=== PATIENT | female | born 1930 | race Caucasian/White ===

== ENCOUNTER → 2016-05-11 | Outpatient (CLI) | payer MEDICARE, OTHER ==
[~2016-05-11] MED LIST: CALCIUM; CINNAMON; CRANBERRY PILLS; HYDR-3812 PO; HYDR-757 PO; MULT1TAB63 PO; OMG1KC PO; TRAM50TA2 PO; VIT PO; VIT1CAPS5 PO; VITAMIN B-12 PO
--- OUTSIDE RECORDS SUMMARY | 2016-05-11 05:52 | XMS REPORT | Continuity of Care Document ---
Author Author [facility] Organization [facility] Address Unknown Phone Unavailable Support Name Relationship Address Phone DENISSE TITUS MD Caregiver [address] [place] [address] SHINE DUARTE Next Of Kin [address] [place], [place] [phone] Insurance Providers Payer Name Policy Number Subscriber Name Relationship Wps Medicare [id number] Lorena Duarte 18 Self / Same As Patient Enter Insurance Name [id number] Lorena Duarte 18 Self / Same As Patient Advance Directives Directive Response Recorded Date/Time Advance Directives Yes 06/12/14 11:16pm Health Care Power of Anesthesiologist/Physician Yes 06/12/14 11:16pm Organ Donor No 06/12/14 11:16pm Resuscitation Status Full Code 06/12/14 11:16pm Problems Medical Problems Problem Onset Date Status Lower extremity weakness Unknown Active Elevated erythrocyte sedimentation rate Unknown Active Systolic murmur Unknown Active Medications Medication Dose Route Sig Days/Qty Instructions Order Date Discontinued Date Status Multivitamins 12/21/07 Active [Calcium Chew Tabs] 12/21/07 Active Fish Oil 12/21/07 Active [Cranberry Pills] 12/21/07 Active [Cinnamon Tablet] 01/13/09 Active Social History Social History Problem Response Recorded Date/Time Alcohol Use Denies Use 06/12/2014 11:16pm Recreational Drug Use No 06/12/2014 11:16pm Recent Foreign Travel No 06/12/2014 11:16pm Recent Infectious Disease Exposure No 06/12/2014 11:16pm Sexually Transmitted Disease No 06/12/2014 11:16pm Smoking Status Never a Smoker 06/12/2014 11:16pm Query Response Start Date Stop Date Smoking Status Never a Smoker Hospital Discharge Instructions No hospital discharge instructions. Plan of Care No plan of care. Functional Status Query Response Date Recorded Patient Orientation Person Place Time Situation June 12, 2014 11:16pm Comprehension Ability Understands Concepts June 12, 2014 11:16pm Allergies, Adverse Reactions, Alerts Allergen Type Severity Reaction Status Last Updated No Known Allergies Allergy Unknown Active 12/24/07 Immunizations No immunization records. Vital Signs Acute Vital Signs Vital Response Date/Time Temperature (Fahrenheit) 98.2 degrees F (97.6 - 99.5) Temperature (Calculated Celsius) 36.50030 degrees C (36.4 - 37.5) Temperature Source Temporal Pulse Rate (adult) 99 bpm (60 - 90) Respiratory Rate 18 bpm (12 - 24) O2 Sat by Pulse Oximetry 97 % (88 - 100) Blood Pressure 154/70 mm Hg Pain Pain Intensity 0 Height (Feet) 5 feet Height (Inches) 0 inches Height (Calculated Centimeters) 152.282025 cm Weight (Pounds) 131 pounds Weight (Calculated Kilograms) 59.865465 kilograms Calculated BMI 25.58 Results Laboratory Results Test Name Result Units Flags Reference Collection Date/Time Result Date/ Time Comments White Blood Count 12.6 10^3/uL H 4.3-11.0 06/12/2014 11:30pm 06/12/2014 11:39pm Red Blood Count 4.22 10^6/uL L 4.35-5.85 06/12/2014 11:30pm 06/12/2014 11 :39pm Hemoglobin 13.6 G/DL 11.5-16.0 06/12/2014 11:30pm 06/12/2014 11:39pm Hematocrit 40 % 35-52 06/12/2014 11:30pm 06/12/2014 11:39pm Mean Corpuscular Volume 94 FL 80-99 06/12/2014 11:30pm 06/12/2014 11: 39pm Mean Corpuscular Hemoglobin 32 PG 25-34 06/12/2014 11:30pm 06/12/2014 11:39pm Mean Corpuscular Hemoglobin Concent 34 G/DL 32-36 06/12/2014 11:30pm 11:39pm Red Cell Distribution Width 14.5 % 10.0-14.5 06/12/2014 11:30pm 2014 11:39pm Platelet Count 157 10^3/uL 130-400 06/12/2014 11:30pm 06/12/2014 11: 39pm Mean Platelet Volume 10.0 FL 7.4-10.4 06/12/2014 11:30pm 06/12/2014 11: 39pm Neutrophils (%) (Auto) 42 % 42-75 06/12/2014 11:30pm 06/12/2014 11: 39pm Lymphocytes (%) (Auto) 12 % 12-44 06/12/2014 11:30pm 06/12/2014 11: 39pm Monocytes (%) (Auto) 46 % H 0-12 06/12/2014 11:30pm 06/12/2014 11:39pm Eosinophils (%) (Auto) 0 % 0-10 06/12/2014 11:30pm 06/12/2014 11:39pm Basophils (%) (Auto) 0 % 0-10 06/12/2014 11:30pm 06/12/2014 11:39pm Neutrophils # (Auto) 5.3 X 10^3 1.8-7.8 06/12/2014 11:30pm 06/12/2014 11:39pm Lymphocytes # (Auto) 1.5 X 10^3 1.0-4.0 06/12/2014 11:30pm 06/12/2014 11:39pm Monocytes # (Auto) 5.8 X 10^3 H 0.0-1.0 06/12/2014 11:30pm 06/12/2014 11: 39pm Eosinophils # (Auto) 0.1 10^3/uL 0.0-0.3 06/12/2014 11:30pm 06/12/2014 11:39pm Basophils # (Auto) 0.0 10^3/uL 0.0-0.1 06/12/2014 11:30pm 06/12/2014 11 :39pm Neutrophils % (Manual) 49 % 06/12/2014 11:30pm 06/13/2014 12:08am Band Neutrophils 1 % 06/12/2014 11:30pm 06/13/2014 12:08am Lymphocytes % (Manual) 12 % 06/12/2014 11:30pm 06/13/2014 12:08am Monocytes % (Manual) 38 % 06/12/2014 11:30pm 06/13/2014 12:08am Blood Morphology Comment NORMAL 06/12/2014 11:30pm 06/13/2014 12: 08am Erythrocyte Sedimentation Rate 47 MM/HR H 0-30 06/12/2014 11:30pm 2014 12:08am Urine Color YELLOW 06/12/2014 11:55pm 06/13/2014 12:17am Urine Clarity CLEAR 06/12/2014 11:55pm 06/13/2014 12:17am Urine pH 6 5-9 06/12/2014 11:55pm 06/13/2014 12:17am Urine Specific [place] 1.010 * 1.016-1.022 06/12/2014 11:55pm 2014 12:17am Urine Protein 1+ * NEGATIVE 06/12/2014 11:55pm 06/13/2014 12:17am Urine Glucose (UA) NEGATIVE NEGATIVE 06/12/2014 11:55pm 06/13/2014 12 :17am Urine RBC (Auto) 1+ * NEGATIVE 06/12/2014 11:55pm 06/13/2014 12:17am Urine Ketones 2+ * NEGATIVE 06/12/2014 11:55pm 06/13/2014 12:17am Urine Nitrite NEGATIVE NEGATIVE 06/12/2014 11:55pm 06/13/2014 12: 17am Urine Bilirubin NEGATIVE NEGATIVE 06/12/2014 11:55pm 06/13/2014 12: 17am Urine Urobilinogen NORMAL MG/DL NORMAL 06/12/2014 11:55pm 06/13/2014 12 :17am Urine Leukocyte Esterase 1+ * NEGATIVE 06/12/2014 11:55pm 06/13/2014 12 :17am Urine RBC 2-5 /HPF * 06/12/2014 11:55pm 06/13/2014 12:17am Urine WBC 0-2 /HPF 06/12/2014 11:55pm 06/13/2014 12:17am Urine Bacteria TRACE /HPF 06/12/2014 11:55pm 06/13/2014 12:17am Urine Squamous Epithelial Cells 2-5 /HPF 06/12/2014 11:55pm 2014 12:17am Urine Crystals NONE /LPF 06/12/2014 11:55pm 06/13/2014 12:17am Urine Casts PRESENT /LPF 06/12/2014 11:55pm 06/13/2014 12:17am Urine Granular Casts 2-5 /LPF * 06/12/2014 11:55pm 06/13/2014 12:17am Urine Mucus NEGATIVE /LPF 06/12/2014 11:55pm 06/13/2014 12:17am Urine Culture Indicated NO 06/12/2014 11:55pm 06/13/2014 12:17am Sodium Level 140 MMOL/L 135-145 06/12/2014 11:30pm 06/13/2014 12:00am Potassium Level 3.7 MMOL/L 3.6-5.0 06/12/2014 11:30pm 06/13/2014 12: 00am Chloride Level 103 MMOL/L 98-107 06/12/2014 11:30pm 06/13/2014 12:00am Carbon Dioxide Level 22 MMOL/L 21-32 06/12/2014 11:30pm 06/13/2014 12: 00am Blood Urea Nitrogen 10 MG/DL 7-18 06/12/2014 11:30pm 06/13/2014 12: 00am Creatinine 0.70 MG/DL 0.60-1.30 06/12/2014 11:30pm 06/13/2014 12:00am BUN/Creatinine Ratio 14 06/12/2014 11:30pm 06/13/2014 12:00am Estimat Glomerular Filtration Rate > 60 06/12/2014 11:30pm 2014 12:00am GFR INTERPRETIVE DATA UNITS FOR ESTIMATED GFR (eGFR): mL/min/1.73 M2 REFERENCE RANGE FOR ESTIMATED GFR (eGFR) eGFR NORMAL eGFR >60 MODERATELY DECREASED eGFR 30-59 SEVERLY DECREASED eGFR 15-29 KIDNEY FAILURE <15 (OR DIALYSIS) Glucose Level 128 MG/DL H 70-105 06/12/2014 11:30pm 06/13/2014 12:00am Calcium Level 10.2 MG/DL H 8.5-10.1 06/12/2014 11:30pm 06/13/2014 12: 00am Total Bilirubin 1.7 MG/DL H 0.1-1.0 06/12/2014 11:30pm 06/13/2014 12: 00am Alkaline Phosphatase 60 U/L 40-136 06/12/2014 11:30pm 06/13/2014 12: 00am Aspartate Amino Transf (AST/SGOT) 18 U/L 5-34 06/12/2014 11:30pm 2014 12:00am Alanine Aminotransferase (ALT/SGPT) 8 U/L 0-55 06/12/2014 11:30pm 06/13 12:00am Total Creatine Kinase 59 U/L 29-168 06/12/2014 11:30pm 06/13/2014 12: 00am Troponin I < 0.30 NG/ML <0.30 06/12/2014 11:30pm 06/13/2014 12:20am Total Protein 8.1 G/DL 6.4-8.2 06/12/2014 11:30pm 06/13/2014 12:00am Albumin 4.4 G/DL 3.2-4.5 06/12/2014 11:30pm 06/13/2014 12:00am TSH [place] Testing 3.45 UIU/ML 0.35-4.94 06/12/2014 11:30pm 2014 12:20am Procedures Procedure Status Date Provider(s) Tracing only of electrocardiogram completed 06/12/14 DENISSE TITUS MD Encounters Encounter Location Date/Time Departed Emergency Room Via [facility] 06/12/14 11:09pm Recent Diagnosis
== END ==
LOC: PREOP 05:47
PROVIDERS: ATTEND Surgery
DX: Z01.818 Encounter for other preprocedural examination (principal); C44.310 Basal cell carcinoma of skin of unspecified parts of face

== ENCOUNTER 2016-05-13 07:28 | Day surgery (SDC) | payer MEDICARE, OTHER ==
[~2016-05-13] VITALS: Ht 152.4 cm; Wt 49.4 kg
[~2016-05-13 07:28] MED LIST changes: -VIT PO; -VIT1CAPS5 PO; -VITAMIN B-12 PO
--- OUTSIDE RECORDS SUMMARY | 2016-05-13 07:31 | XMS REPORT | Continuity of Care Document ---
Author Author [facility] Organization [facility] Address Unknown Phone Unavailable Support Name Relationship Address Phone DENISSE TITUS MD Caregiver [address] [place] [address] SHINE DUARTE Next Of Kin [address] [place], [place] [phone] Insurance Providers Payer Name Policy Number Subscriber Name Relationship Wps Medicare [id number] Lorena Duarte 18 Self / Same As Patient Enter Insurance Name [id number] Lorena Duarte 18 Self / Same As Patient Advance Directives Directive Response Recorded Date/Time Advance Directives Yes 06/12/14 11:16pm Health Care Power of Vascular Ultrasound Technologist Yes 06/12/14 11:16pm Organ Donor No 06/12/14 [...] F (97.6 - 99.5) Temperature (Calculated Celsius) 36.53523 degrees C (36.4 - 37.5) Temperature Source Temporal Pulse Rate (adult) 99 bpm (60 - 90) Respiratory Rate 18 bpm (12 - 24) O2 Sat by Pulse Oximetry 97 % (88 - 100) Blood Pressure 154/70 mm Hg Pain Pain Intensity 0 Height (Feet) 5 feet Height (Inches) 0 inches Height (Calculated Centimeters) 152.741492 cm Weight (Pounds) 131 pounds Weight (Calculated Kilograms) 59.422955 kilograms Calculated BMI 25.58 Results Laboratory Results [...] 5-9 06/12/2014 11:55pm 06/13/2014 12:17am Urine Specific [place] 1.010 * 1.016-1.022 06/12/2014 11:55pm 2014 12:17am [...] G/DL 3.2-4.5 06/12/2014 11:30pm 06/13/2014 12:00am TSH [place] Testing 3.45 UIU/ML 0.35-4.94 06/12/2014 11:30pm 2014 12:20am Procedures Procedure Status Date Provider(s) Tracing only of electrocardiogram completed 06/12/14 DENISSE TITUS MD Encounters Encounter Location Date/Time Departed Emergency Room Via [facility] 06/12/14 11:09pm Recent Diagnosis
--- OUTSIDE RECORDS SUMMARY | 2016-05-13 07:32 | XMS REPORT | Continuity of Care Document ---
Author Author [facility] Organization [facility] Address Unknown Phone Unavailable Support Name Relationship Address Phone DENISSE TITUS MD Caregiver [address] [place] [address] SHINE DUARTE Next Of Kin [address] [place], [place] [phone] Insurance Providers Payer Name Policy Number Subscriber Name Relationship Wps Medicare [id number] Lorena Duarte 18 Self / Same As Patient Enter Insurance Name [id number] Lorena Duarte 17 Self / Same As Patient Advance Directives Directive Response Recorded Date/Time Advance Directives Yes 06/12/14 11:16pm Health Care Power of Momd Teacher Yes 06/12/14 11:16pm Organ Donor No 06/12/14 [...] F (97.6 - 99.5) Temperature (Calculated Celsius) 36.75032 degrees C (36.4 - 37.5) Temperature Source Temporal Pulse Rate (adult) 99 bpm (60 - 90) Respiratory Rate 18 bpm (12 - 24) O2 Sat by Pulse Oximetry 97 % (88 - 100) Blood Pressure 154/70 mm Hg Pain Pain Intensity 0 Height (Feet) 5 feet Height (Inches) 0 inches Height (Calculated Centimeters) 152.338127 cm Weight (Pounds) 131 pounds Weight (Calculated Kilograms) 59.535293 kilograms Calculated BMI 25.58 Results Laboratory Results [...] 5-9 06/12/2014 11:55pm 06/13/2014 12:17am Urine Specific [place] 1.010 * 1.016-1.022 06/12/2014 11:55pm 2014 12:17am [...] G/DL 3.2-4.5 06/12/2014 11:30pm 06/13/2014 12:00am TSH [place] Testing 3.45 UIU/ML 0.35-4.94 06/12/2014 11:30pm 2014 12:20am Procedures Procedure Status Date Provider(s) Tracing only of electrocardiogram completed 06/12/14 DENISSE TITUS MD Encounters Encounter Location Date/Time Departed Emergency Room Via [facility] 06/12/14 11:09pm Recent Diagnosis
--- NOTE | 2016-05-13 07:41 | Progress Note-Pre Operative ---
Pre-Operative Progress Note H&P Reviewed The H&P was reviewed, patient examined and no changes noted. Date H&P Reviewed: May 13, 2016 Time H&P Reviewed: 07:41 Pre-Operative Diagnosis: Recurrent skin lesion-Right eyebrow JANN GASPAR MD May 13, 2016 7:41 am
[2016-05-13] MEDS ORDERED: ceFAZolin 1,000 MG (ANCEF) VIAL ONE (07:57)
[2016-05-13] MEDS ORDERED: NS (IVPB) 50 ML ONE (07:57)
[2016-05-13 08:41] VITALS: BP 168/69
[2016-05-13] MEDS ORDERED: BUP/EPI 0.25% 1:200,000 (MARCAINE) 30 ML VIAL ONE (09:01)
[2016-05-13] MEDS ORDERED: proPOfol 200 MG/20 ML (DIPRIVAN) VIAL IV ONE (09:20)
[2016-05-13] MEDS ORDERED: LIDOCAINE PF 2% 10 ML (XYLOCAINE) AMP ONE (09:20)
[2016-05-13] MEDS ORDERED: LACTATED RINGERS 1,000 ML IV ONE (09:20)
[2016-05-13] MEDS ORDERED: LACTATED RINGERS 1,000 ML IV PRN (09:41)
[2016-05-13] MEDS ORDERED: VIT PO (09:41)
[2016-05-13] MEDS ORDERED: MIDAZOLAM 2 MG/2 ML (VERSED) VIAL ONE (09:44)
--- NOTE | 2016-05-13 10:07 | Progress Note-Post Operative ---
Post-Operative Progess Note Pre-Operative Diagnosis Recurrent skin lesion-Right eyebrow Post-Operative Diagnosis SAME Post-Op Procedure Note Date of Procedure: May 13, 2016 Name of Procedure: excision with frozen section Anesthesia Type sedation with local Estimated blood loss (mL): mminimal Specimen(s) collected skin lesion JANN GASPAR MD May 13, 2016 10:06 am
[2016-05-13] MEDS ORDERED: TRAM50TA2 PO (10:09)
--- NOTE | 2016-05-13 10:09 | Discharge Inst-Simple/Standard ---
Discharge Inst-Standard Discharge Medications New, Converted or Re-Newed RX: RX on Chart Patient Instructions/Follow Up Plan of Care/Instructions/FU: follow-up with my nurse in 10 days for suture removal Activity as Tolerated: Yes Discharge Diet: No Restrictions JANN GASPAR MD May 13, 2016 10:09 am
[2016-05-13] MEDS ORDERED: ONDANSETRON 4 MG/2 ML (SDV) Z0FRAN IVP PRN (11:15)
[2016-05-13] MEDS ORDERED: morphine INJ 10 MG/ML 1ML (SYR OR VIAL) IVP PRN (11:15)
[2016-05-13 11:25] VITALS: BP 160/72
[2016-05-13 11:55] VITALS: BP 168/72
[2016-05-13] MEDS ORDERED: ceFAZolin 1 GM/NS 50 ML IVPB IV ONE ×2 (12:00)
[2016-05-13] MEDS ORDERED: CATHETER FLUSH 10 ML SYR IV PRN (12:00)
[2016-05-13 12:25] VITALS: BP 171/58
[2016-05-13 12:40] VITALS: BP 171/58
--- NOTE | 2016-05-13 19:13 | OPERATIVE REPORT ---
PROCEDURE PHYSICIAN: JANN GASPAR DATE OF PROCEDURE: 05/13/2016 PREOPERATIVE DIAGNOSIS: Skin lesion right eyebrow. 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 OPERATION: Excision with frozen section. SURGEON: Dr. Gaspar. ANESTHESIA: Sedation with local. BLOOD LOSS: Minimal. FLUIDS: 300 mL crystalloids. TYPE OF WOUND: Type I (clean wound). INDICATION FOR THE PROCEDURE: This lady presented with an ulcerated, recurrent lesion over the right eyebrow. She had undergone excision of a basal cell carcinoma of the same spot with positive margins in 2007. She was offered excision with frozen section to ensure negative margins. Informed consent was obtained after reviewing the procedure in detail. DESCRIPTION OF PROCEDURE: She was placed supine on the operating table and our and our anesthesiologist administered sedation, monitoring her vital signs. A gram of Ancef was administered intravenously as prophylaxis against wound infection. Sequential compression devices were placed around her legs, to minimize the risk of venous thrombosis. Right eyebrow was prepared and draped in the usual sterile manner. Local anesthesia was achieved using 0.25% Marcaine with epinephrine. Initially, I excised an elliptical segment of skin about 3 cm long x 2.5 cm wide. It was oriented with silk sutures and sent for histologic examination. Dr. Brown reported positive margins involving the superior and inferior aspects of the specimen. Therefore, an additional segment of skin conforming to positive margin was excised and sent for permanent examination. The defect was then approximated using interrupted 6-0 nylon sutures after achieving hemostasis with cautery. The final area of excision was about 4 cm long x 3 cm wide. Job ID: [id number] Dictated Date: 05/13/2016 10:55:11 Rare/Endangered Species Specialist Date: 05/13/2016 19:08:12 / genesis
== END 2016-05-13 12:40 | disposition home or self-care (01) ==
LOC: SDC 07:28
PROVIDERS: ATTEND Surgery
DX: C44.310 Basal cell carcinoma of skin of unspecified parts of face (principal)
CPT/HCPCS: 87081; 88305; 88331; 88332

== ENCOUNTER 2016-06-27 02:47 | Inpatient (IN) | payer MEDICARE, OTHER ==
[~2016-06-27] VITALS: Ht 152.4 cm; Wt 50.3 kg
[~2016-06-27 02:47] MED LIST changes: +VIT PO
--- NOTE | 2016-06-27 02:59 | ED GI ---
General Chief Complaint: Abdominal/GI Problems Stated Complaint: N/V Source of Information: Patient Exam Limitations: No Limitations History of Present Illness Time Seen By Provider: 02:56 Initial Comments Lower abdominal and lower back pain for the past several hours. Symptoms became so severe tonight she called 911. She is nauseated but has not vomited. She denies fevers. Pain is described as a dull ache. Also fell last week and injured her back. Allergies and Home Medications Allergies Coded Allergies: NKANo Known Allergies (Verified Allergy, Unknown, 12/24/07) Home Medications Multivitamins 1 Ea Tablet, 1 TAB PO DAILY, (Reported) Tramadol HCl 50 Mg Tablet, 50 MG PO Q12H PRN for PAIN, #20 Prescribed by: JANN GASPAR on 05/13/16 1009 Review of Systems Constitutional: malaise EENTM: No Symptoms Reported Respiratory: No Symptoms Reported Gastrointestinal: Abdominal Pain, Nausea, Vomiting Musculoskeletal: back pain Skin: no symptoms reported Hematologic/Lymphatic: No Symptoms Reported All Other Systems Reviewed Negative Unless Noted: Yes Past Hluwpor-Cklerb-Enotdi Hx Patient Social History Alcohol Use: Denies Use Smoking Status: Never a Smoker Recent Hopitalizations: No Immunizations Up To Date Date of Pneumonia Vaccine: Aug 24, 2005 Date of Influenza Vaccine: Dec 05, 2015 Surgeries HX Surgeries: Yes (L MASTECTOMY, bilat tkr, skin lesions removed, ) Surgeries: Adenoidectomy, Breast, Section, Joint Replacement, Tonsillectomy Respiratory Hx Respiratory Disorders: No Cardiovascular Hx Cardiac Disorders: Yes Cardiac Disorders: Heart Murmur, Irregular Heartbeat Neurological Hx Neurological Disorders: No Reproductive System Hx Reproductive Disorders: No Sexually Transmitted Disease: No Genitourinary Hx Genitourinary Disorders: Yes (OVERACTIVE BLADDER) Gastrointestinal Hx Gastrointestinal Disorders: Yes Gastrointestinal Disorders: Gastroesophageal Reflux Musculoskeletal Hx Musculoskeletal Disorders: Yes (BILAT KNEE REPLACEMENT, comp fx) Musculoskeletal Disorders: Arthritis, Fractures Endocrine Hx Endocrine Disorders: No HEENT HX ENT Disorders: No (cataracts removed) Cancer Hx Cancer: Yes Cancer: Breast Psychosocial Hx Psychiatric Problems: No Integumentary HX Skin/Integumentary Disorder: No Blood Transfusions Hx Blood Disorders: No Reviewed Nursing Assessment Reviewed/Agree w Nursing PMH: Yes Physical Exam Vital Signs VS - Last 72 Hours, by Label 06/27/16 02:52 Temp 97.6 Pulse 99 Resp 16 B/P (MAP) 150/71 Pulse Ox 93 O2 Delivery Room Air Capillary Refill : General Appearance: WD/WN, no apparent distress HEENT: PERRL/EOMI, pharynx normal Neck: supple Respiratory: lungs clear, normal breath sounds Cardiovascular: regular rate, rhythm, no edema Gastrointestinal: soft, No guarding, No rebound, tenderness (mild tenderness throughout) Extremities: normal inspection Back: vertebral tenderness (tender over her upper lumbar spine) Neurologic/Psychiatric: alert, normal mood/affect Skin: normal color, warm/dry Progress/Results/Core Measures Results/Orders Lab Results Laboratory Tests Test 06/27/16 03:00 Range/Units White Blood Count 34.0 *H 4.3-11.0 10^3/uL Red Blood Count 3.93 L 4.35-5.85 10^6/uL Hemoglobin 12.1 11.5-16.0 G/DL Hematocrit 37 35-52 % Mean Corpuscular Volume 93 80-99 FL Mean Corpuscular Hemoglobin 31 25-34 PG Mean Corpuscular Hemoglobin Concent 33 32-36 G/DL Red Cell Distribution Width 15.7 H 10.0-14.5 % Platelet Count 605 H 130-400 10^3/uL Mean Platelet Volume 10.5 H 7.4-10.4 FL Neutrophils (%) (Auto) 59 42-75 % Lymphocytes (%) (Auto) 5 L 12-44 % Monocytes (%) (Auto) 36 H 0-12 % Eosinophils (%) (Auto) 0 0-10 % Basophils (%) (Auto) 0 0-10 % Neutrophils # (Auto) 19.9 H 1.8-7.8 X 10^3 Lymphocytes # (Auto) 1.9 1.0-4.0 X 10^3 Monocytes # (Auto) 12.1 H 0.0-1.0 X 10^3 Eosinophils # (Auto) 0.1 0.0-0.3 10^3/uL Basophils # (Auto) 0.1 0.0-0.1 10^3/uL Neutrophils % (Manual) 71 % Lymphocytes % (Manual) 4 % Monocytes % (Manual) 21 % Band Neutrophils 4 % Blood Morphology Comment NORMAL Sodium Level 139 135-145 MMOL/L Potassium Level 4.3 3.6-5.0 MMOL/L Chloride Level 103 98-107 MMOL/L Carbon Dioxide Level 24 21-32 MMOL/L Anion Gap 12 5-14 MMOL/L Blood Urea Nitrogen 12 7-18 MG/DL Creatinine 0.71 0.60-1.30 MG/DL Estimat Glomerular Filtration Rate > 60 BUN/Creatinine Ratio 17 Glucose Level 129 H 70-105 MG/DL Calcium Level 8.7 8.5-10.1 MG/DL Total Bilirubin 1.0 0.1-1.0 MG/DL Aspartate Amino Transf (AST/SGOT) 19 5-34 U/L Alanine Aminotransferase (ALT/SGPT) 6 0-55 U/L Alkaline Phosphatase 117 40-136 U/L Total Protein 6.6 6.4-8.2 G/DL Albumin 3.6 3.2-4.5 G/DL Lipase 35 8-78 U/L My Orders Orders - KASSIDY LORA MD Cbc With Automated Diff (06/27/16 02:53) Comprehensive Metabolic Panel (06/27/16 02:53) Lipase (06/27/16 02:53) Ua Culture If Indicated (06/27/16 02:53) Ct Abdomen/Pelvis Wo (06/27/16 03:00) Manual Differential (06/27/16 03:00) Chest 1 View, Ap/Pa Only (06/27/16 05:17) Piperacillin Sodium/Tazobactam (Zosyn Vi (06/27/16 05:30) Saline Lock/Iv-Start (06/27/16 05:30) Vital Signs/I&O Vital Sign - Last 12Hours 06/27/16 02:52 Temp 97.6 Pulse 99 Resp 16 B/P (MAP) 150/71 Pulse Ox 93 O2 Delivery Room Air Diagnostic Imaging Comments 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 There are also densities in the left lung base and an L2 vertebral body fracture. Departure Communication Time/Spoke to Admitting Phy: 05:35 Communication I spoke with Dr. Riley who agrees to admit for Dr. Castellanos. Will consult surgery this morning. Impression Impression: Primary Impression: abdominal pain Additional Impressions: Leukocytosis Cholelithiasis L2 vertebral body fracture Disposition: ADMITTED INPATIENT Condition: Stable Decision to Admit Reason: Admit from ER (General) Decision to Admit/Date: Jun 27, 2016 Time/Decision to Admit Time: 05:21 Departure-Patient Inst. Referrals: MK CASTELLANOS MD (PCP/Family) Primary Care Physician KASSIDY LORA MD Jun 27, 2016 02:59
[2016-06-27 03:08] LABS: BASOPHILS # (AUTO) 0.1 10^3/uL (0.0-0.1); BASOPHILS % (AUTO) 0 % (0-10); EOSINOPHILS # (AUTO) 0.1 10^3/uL (0.0-0.3); EOSINOPHILS % (AUTO) 0 % (0-10); LYMPHOCYTES # (AUTO) 1.9 X 10^3 (1.0-4.0); LYMPHOCYTES % (AUTO) 5 % (12-44); MEAN CORPUSCULAR HEMOGLOBIN 31 PG (25-34); MEAN CORPUSCULAR HGB CONC 33 G/DL (32-36); MEAN CORPUSCULAR VOLUME 93 FL (80-99); MEAN PLATELET VOLUME 10.5 FL (7.4-10.4); MONOCYTES # (AUTO) 12.1 X 10^3 (0.0-1.0); MONOCYTES % (AUTO) 36 % (0-12); NEUTROPHILS # (AUTO) 19.9 X 10^3 (1.8-7.8); NEUTROPHILS % (AUTO) 59 % (42-75); PLATELET COUNT 605 10^3/uL (130-400); RED BLOOD COUNT 3.93 10^6/uL (4.35-5.85); RED CELL DISTRIBUTION WIDTH 15.7 % (10.0-14.5)
[2016-06-27 03:28] LABS: ALANINE AMINOTRANSFERASE 6 U/L (0-55); ALBUMIN 3.6 G/DL (3.2-4.5); ANION GAP 12 MMOL/L (5-14); ASPARTATE AMINO TRANSFERASE 19 U/L (5-34); BLOOD UREA NITROGEN 12 MG/DL (7-18); BUN/CREATININE RATIO 17; CALCIUM 8.7 MG/DL (8.5-10.1); CARBON DIOXIDE 24 MMOL/L (21-32); CHLORIDE 103 MMOL/L (98-107); CREATININE SERUM 0.71 MG/DL (0.60-1.30); GFR ESTIMATED > 60; GLUCOSE 129 MG/DL (70-105); LIPASE 35 U/L (8-78); POTASSIUM 4.3 MMOL/L (3.6-5.0); SODIUM 139 MMOL/L (135-145); TOTAL PROTEIN 6.6 G/DL (6.4-8.2)
[2016-06-27 03:43] LABS: BAND NEUTROPHILS 4 %; LYMPHOCYTES % (MANUAL) 4 %; NEUTROPHILS % (MANUAL) 71 %
[2016-06-27] MEDS ORDERED: PIPERACILLIN SODIUM/TAZOBACTAM 4.5 GM in NS (IVPB) 100 ML IV ONE (05:30)
[2016-06-27] MEDS ORDERED: NS IV 1000 ML 1,000 ML ONE (06:09)
[2016-06-27] MEDS: NS IV 1000 ML 1,000 ML IV SCH ×2 (06:30→17:11)
--- NOTE | 2016-06-27 06:58 | Diagnostic Imaging Report ---
PROCEDURE: CT abdomen and pelvis without contrast. TECHNIQUE: Multiple contiguous axial images were obtained through the abdomen and pelvis without the use of intravenous contrast. INDICATION: Low back pain for 10 days, constipation. COMPARISON: Lumbar spine MRI 08/01/2015. DISCUSSION: Consolidation within the left lower lobe, concerning for pneumonia. Trace left pleural effusion. Cardiomegaly is noted. Antecedent granulomatous disease is present, benign. Calcified gallbladder is noted. The liver, pancreas, stomach, spleen, adrenal glands, and right kidney are unremarkable. Suspect left parapelvic renal cyst. No hydronephrosis or renal stone. Constipation is noted. The uterus and urinary bladder are unremarkable. 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 The aorta is normal in caliber. Suspect acute fracture along the superior endplate of the L2 vertebral body. Chronic compression fracture within the L1 vertebral body status post cement augmentation. IMPRESSION: 1. Suspect acute compression fracture involving the superior endplate of the L2 vertebral body, new from previous MRI. Recommend lumbar spine MRI for further evaluation and possible planning for kyphoplasty. 2. Suspect left lower lobe pneumonia. 3. Porcelain gallbladder. 4. Constipation. 5. Agree with preliminary report. Dictated by: Dictated on workstation # [id number]
--- NOTE | 2016-06-27 07:01 | Diagnostic Imaging Report ---
Indication: Back pain. Discussion: Single portable upright view of the chest was obtained, comparison 06/13/2014. Underlying COPD is stable. Mild interstitial thickening is stable, chronic. No focal consolidation, pleural fluid, or pneumothorax. Stable normal heart size. Impression: 1. Stable changes of COPD. Dictated by: Dictated on workstation # [id number]
[2016-06-27 08:00] VITALS: BP 164/67
--- NOTE | 2016-06-27 09:24 | History & Physicial ---
History of Present Illness History of Present Illness Reason for visit/HPI PT REPORTS THAT SHE WAS HAVING PAIN IN HER ABDOMEN AND BACK. SHE REPORTS THAT HER PAIN IS QUITE INTENSE IN HER BACK. SHE STATES THAT THE PAIN IN HER ABDOMEN HAS IMPROVED A LITTLE SINCE ADMISSION. Date of Admission Jun 27, 2016 at 05:31 I consulted on this patient on 06/27/16 09:23 Attending Physician Mk Montelongo MD Admitting Physician Mk Montelongo MD Consult DR. GASPAR Allergies and Home Medications Allergies Coded Allergies: NKANo Known Allergies (Verified Allergy, Unknown, 12/24/07) Home Medications Multivitamins 1 Ea Tablet, 1 TAB PO BID, (Reported) Vit A/C/E/Zinc/Co 1 Cap Capsule, 1 CAP PO BID, (Reported) [Vitamin B-12] , 1 TAB PO DAILY, (Reported) Past Zaohjck-Mszdje-Yqqbtx Hx Patient Social History Marrital Status: Employed/Student: retired Alcohol Use: Denies Use Recreational Drug Use: No Smoking Status: Never a Smoker 2nd Hand Smoke Exposure: No Physical Abuse Screen: No Sexual Abuse: No Recent Foreign Travel: No Contact w/other who traveled: No Recent Hopitalizations: No (EYE SX.) Recent Infectious Disease Expo: No Immunizations Up To Date Date of Pneumonia Vaccine: Jun 28, 2011 Date of Influenza Vaccine: Dec 05, 2015 Seasonal Allergies Seasonal Allergies: Yes Surgeries HX Surgeries: Yes (L MASTECTOMY, bilat tkr, skin lesions removed, ) Surgeries: Adenoidectomy, Breast, Section, Joint Replacement, Tonsillectomy Respiratory Hx Respiratory Disorders: No Cardiovascular Hx Cardiovascular Disorders: Yes Cardiac Disorders: Heart Murmur, Irregular Heartbeat Neurological Hx Neurological Disorders: No Reproductive System Hx Reproductive Disorders: No Sexually Transmitted Disease: No HIV/AIDS: No Genitourinary Hx Genitourinary Disorders: Yes (OVERACTIVE BLADDER) Gastrointestinal Hx Gastrointestinal Disorders: Yes Gastrointestinal Disorders: Gastroesophageal Reflux Musculoskeletal Hx Musculoskeletal Disorders: Yes (BILAT KNEE REPLACEMENT, comp fx) Musculoskeletal Disorders: Arthritis, Chronic Back Pain, Fractures Endocrine Hx Endocrine Disorders: No HEENT HX ENT Disorders: No (cataracts removed) Cancer Hx Cancer: Yes Cancer: Breast Psychosocial Hx Psychiatric Problems: No Integumentary HX Skin/Integumentary Disorder: No Blood Transfusions Hx Blood Disorders: No Reviewed Nursing Assessment Reviewed/Agree w Nursing PMH: Yes Family Medical History Significant Family History: Heart Disease, Cancer Family Hx: FH: heart disease 19 FATHER FH: uterine cancer 19 MOTHER Constitutional: No chills, No fever, malaise, weakness EENTM: No hoarseness, No nose pain, No throat pain Respiratory: No cough, No dyspnea on exertion, No short of breath Cardiovascular: No palpitations Gastrointestinal: abdominal pain, No constipation, No diarrhea, No nausea Genitourinary: no symptoms reported Musculoskeletal: back pain, No muscle weakness Skin: No lesions, No rash Psychiatric/Neurological: Denies Headache, Denies Numbness, Denies Weakness All Other Systems Reviewed Negative Unless Noted: Yes Physical Exam Vital Signs Vital Sign - Last 12Hours 06/27/16 02:52 Temp 97.6 Pulse 99 Resp 16 B/P (MAP) 150/71 Pulse Ox 93 O2 Delivery Room Air Capillary Refill : Less Than 3 Seconds General Appearance: WD/WN, Moderate Distress Eyes: Bilateral Eye EOMI, Bilateral Eye Normal Inspection, Bilateral Eye PERRL HEENT: PERRL/EOMI, Pharynx Normal Neck: Full Range of Motion, Supple Respiratory: Chest Non Tender, Lungs Clear, Normal Breath Sounds, No Accessory Muscle Use, No Respiratory Distress Cardiovascular: Regular Rate, Rhythm, No Edema Gastrointestinal: Normal Bowel Sounds, No Organomegaly, No Pulsatile Mass, Soft , Tenderness (MILD - RUQ) Rectal: Deferred Back: Decreased Range of Motion, Other (TTP OVER MID TO LOW BACK) Extremity: Non Tender, No Calf Tenderness, No Pedal Edema Neurologic/Psychiatric: Alert, Oriented x3, No Motor/Sensory Deficits, Normal Mood/Affect, 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 BACK PAIN - L2 COMPRESSION FRACTURE - MRI TODAY, WILL NEED OUTPATIENT KYPHOPLASTY/VERTEBROPLASTY. WEAKNESS - ONCE COMPRESSION FX TREATED, PT WILL HAVE IMPROVEMENT OF WEAKNESS LEUKOCYTOSIS - CHECK BLOOD CULTURE -REPEAT CBC IN MORNING, IF FURTHER INCREASED , WILL CONSULT DR. RUBY. Problems: Admission Diagnosis PORCELAIN GALLBLADDER ABDOMINAL PAIN BACK PAIN WITH L2 COMPRESSION FRACTURE CONSTIPATION - NO BOWEL MOVEMENT X 10 DAYS LEUKOCYTOSIS WEAKNESS Clinical Quality Measures DVT/VTE Risk/Contraindication: Risk Factor Score Per Nursin RFS Level Per Nursing on Admit: 2=Moderate MK MONTELONGO MD Jun 27, 2016 09:24
[2016-06-27] MEDS ORDERED: FLEET ENEMA ADULT 1 EA BTL PR NR (09:30)
[2016-06-27] MEDS: fentaNYL INJECTION 100 MCG/2 ML AMP IVP PRN ×5 (10:25→23:17)
[2016-06-27] MEDS ORDERED: VITAMIN B-12 PO (11:03)
[2016-06-27] MEDS ORDERED: VIT1CAPS5 PO (11:03)
[2016-06-27 12:00] VITALS: BP 149/72
[2016-06-27 12:15] LABS: MEAN PLATELET VOLUME 11.3 FL (7.4-10.4); RED BLOOD COUNT 4.09 10^6/uL (4.35-5.85); RED CELL DISTRIBUTION WIDTH 15.9 % (10.0-14.5)
[2016-06-27 12:16] LABS: WHITE BLOOD COUNT 39.2 10^3/uL (4.3-11.0)
[2016-06-27] MEDS ORDERED: GADOBUTROL 7.5 MMOL/7.5 ML (GADAVIST) VIAL IV ONE (12:30)
--- NOTE | 2016-06-27 13:00 | Diagnostic Imaging Report ---
PROCEDURE: US Gallbladder. TECHNIQUE: Multiple real-time grayscale images were obtained over the right upper quadrant in various projections. 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 FINDINGS: The pancreas is largely obscured by bowel gas. The liver demonstrates no focal lesion. Hepatopetal flow in the portal vein seen. There is significant shadowing in the gallbladder which appears to relate to gallbladder wall calcifications compatible with porcelain gallbladder as suggested on a CT scan with probable underlying stones. There is no definite wall thickening and no pericholecystic fluid. Sonographic Olguin's sign is reportedly negative. The right kidney is 10.3 cm in length with no hydronephrosis or focal lesion. The CBD is 7 mm in caliber. This is at the upper limits of normal for the patient's age. 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 No ultrasound evidence of acute cholecystitis. Dictated by: Dictated on workstation # [id number]
[2016-06-27] MEDS: PIPERACILLIN/TAZOBACTAM 4.5 GM/NS100 ML IVPB IV SCH ×4 (13:02→20:11)
[2016-06-27] MEDS ORDERED: MAGNESIUM CITRATE 300 ML BTL PO NR (13:38)
[2016-06-27] MEDS: ENOXAPARIN 30 MG/0.3 ML (LOVENOX) SYR SC SCH (13:48)
--- NOTE | 2016-06-27 14:09 | Consultation ---
History of Present Illness History of Present Illness Patient Consulted On(jeniffer/time) 06/27/16 14:05 Date of Admission 06/26/16: Reason for Visit: lower back pain and constipation History of Present Illness Acute onset of lower back pain followed by constipation. CT scan shows left lower lobe consolidation without much of his symptoms and porcelain gallbladder. Patient denies any biliary symptoms and her liver function tests are normal. White cell count is elevated at 34,000 Allergies and Home Medications Allergies Coded Allergies: NKANo Known Allergies (Verified Allergy, Unknown, 12/24/07) Home Medications Multivitamins 1 Ea Tablet, 1 TAB PO BID, (Reported) Vit A/C/E/Zinc/Co 1 Cap Capsule, 1 CAP PO BID, (Reported) [Vitamin B-12] , 1 TAB PO DAILY, (Reported) Past Cdcxiws-Dkbkln-Krnfki Hx Patient Social History Alcohol Use: Denies Use Recreational Drug Use: No Smoking Status: Never a Smoker 2nd Hand Smoke Exposure: No Recent Foreign Travel: No Contact w/Someone Who Travel: No Recent Infectious Disease Expo: No Recent Hopitalizations: No (EYE SX.) Physical Abuse Screen: No Sexual Abuse: No Immunizations Up To Date Date of Pneumonia Vaccine: Jun 28, 2011 Date of Influenza Vaccine: Dec 05, 2015 Seasonal Allergies Seasonal Allergies: Yes Surgeries HX Surgeries: Yes (L MASTECTOMY, bilat tkr, skin lesions removed, ) Surgeries: Adenoidectomy, Breast, Section, Joint Replacement, Tonsillectomy Respiratory Hx Respiratory Disorders: No Cardiovascular Hx Cardiac Disorders: Yes Cardiac Disorders: Heart Murmur, Irregular Heartbeat Neurological Hx Neurological Disorders: No Reproductive System Hx Reproductive Disorders: No Sexually Transmitted Disease: No HIV/AIDS: No Genitourinary Hx Genitourinary Disorders: Yes (OVERACTIVE BLADDER) Gastrointestinal Hx Gastrointestinal Disorders: Yes Gastrointestinal Disorders: Gastroesophageal Reflux Musculoskeletal Hx Musculoskeletal Disorders: Yes (BILAT KNEE REPLACEMENT, comp fx) Musculoskeletal Disorders: Arthritis, Chronic Back Pain, Fractures Endocrine Hx Endocrine Disorders: No HEENT HX ENT Disorders: No (cataracts removed) Cancer Hx Cancer: Yes Cancer: Breast Psychosocial Hx Psychiatric Problems: No Integumentary HX Skin/Integumentary Disorder: No Blood Transfusions Hx Blood Disorders: No Reviewed Nursing Assessment Reviewed/Agree w Nursing PMH: Yes Family Medical History Family Medial History: FH: heart disease 19 FATHER FH: uterine cancer 19 MOTHER Review of Systems-General Constitutional: weakness EENTM: no symptoms reported Respiratory: no symptoms reported Gastrointestinal: constipation Genitourinary: no symptoms reported : No Musculoskeletal: back pain Skin: no symptoms reported Psychiatric/Neurological: No Symptoms Reported Physical Exam-General Problems Physical Exam Vital Signs Vital Sign - Last 12Hours 06/27/16 02:52 Temp 97.6 Pulse 99 Resp 16 B/P (MAP) 150/71 Pulse Ox 93 O2 Delivery Room Air Capillary Refill : Less Than 3 Seconds General Appearance: mild distress HEENT: normal ENT inspection Neck: non-tender Respiratory: decreased breath sounds Cardiovascular: normal peripheral pulses Gastrointestinal: non tender, soft, no organomegaly Neurologic/Psychiatric: alert, oriented x 3 Skin: normal color, warm/dry Lymphatic: no adenopathy Assessment/Plan Assessment/Plan Admission Diagnosis/Plan Acute compression fracture of lumbar vertebra. Left lower lobe consolidation. Long-standing calcified gallbladder. No evidence of acute cholecystitis. New- onset constipation, possibly secondary to compression fracture. Reasonable to treat symptomatically with magnesium citrate and address the compression fracture aspirin recommendation by the spine surgeon. At this point, porcelain gallbladder be observed and her white cell count followed. Currently she is on appropriate antibiotics for pneumonia protocol. Clinical Quality Measures DVT/VTE Risk/Contraindication: VTE Present on Admission: No Risk Factor Score Per Nursin RFS Level Per Nursing on Admit: 2=Moderate JANN GASPAR MD Jun 27, 2016 14:09
[2016-06-27] MEDS ORDERED: CATHETER FLUSH 10 ML SYR IV PRN (15:15)
--- NOTE | 2016-06-27 15:41 | Diagnostic Imaging Report ---
PROCEDURE: MRI lumbar spine with and without contrast. TECHNIQUE: Multiplanar, multisequence MRI of the lumbar spine was performed with and without contrast. INDICATION: L2 fracture. History of breast cancer. 5 mL of Gadavist is administered intravenously. COMPARISON: 08/01/2015. FINDINGS: There are kyphoplasty changes with cement seen along the upper aspect of L1 vertebral body with old compression fracture changes. There are acute to subacute compression fractures of L2 and L3 vertebral bodies associated with minimal vertebral body height loss. These are favored to be osteoporotic related with pattern of edema parallel to the superior endplate along the depressed fracture of the superior endplate with no enhancing lesion seen to suggest metastatic disease. The bone marrow at other levels appear within normal limits. There is a left lateral convexity scoliotic curvature centered around L1/L2 level. The cauda equina and conus medullaris appear grossly unremarkable. The conus terminates at the upper L2 level. At the site of the old fracture of L1, there is minimal bulge posteriorly towards the spinal canal without significant spinal canal stenosis. There is otherwise no retropulsion into the spinal canal. T12/L1: There is no disc herniation, there is mild to moderate facet hypertrophy. No central canal or lateral recess stenosis. L1/2: There is no disc herniation, there is gmvw-kh-eoazfgby facet hypertrophy. No central canal or lateral recess stenosis. No significant foraminal narrowing. L2/3: There is a minimal disc bulge and mild to moderate facet hypertrophy. No central canal or lateral recess stenosis of significance. There is bilateral mild foraminal stenosis. L3/4: There is a diffuse disc bulge and mild posterior ligamentous hypertrophy. There is bilateral moderate facet arthropathy. There is no central canal stenosis. Bilateral mild lateral recess stenosis however is seen. There is bilateral moderate foraminal stenosis. L4/5: There is a mild diffuse disc bulge and moderate facet hypertrophy. No significant central canal stenosis. There is lateral recess stenosis of moderate degree on the left and no significant lateral recess stenosis on the right side. There is bilateral foraminal narrowing of moderate to severe degree on the left and mild to moderate on the right side. L5/S1: There is a mild disc bulge and moderate facet arthropathy. There is no central canal or lateral recess stenosis. The foramina demonstrate mild to moderate stenosis bilaterally. IMPRESSION: 1. Acute to subacute compression fractures of L2 and L3 vertebral bodies with minimal vertebral body height loss. This appears to be osteoporotic in etiology with no suspicious underlying mass seen. 2. Old L1 compression fracture status post kyphoplasty change. 3. Degenerative changes as described. Report faxed to Dr. Elvira Castellanos at [phone] at 3:43 p.m. 06/27/2016/ Dictated by: Dictated on workstation # [id number]
[2016-06-27 16:42] VITALS: BP 170/73
[2016-06-27] MEDS: LACTOBACILLUS Acidoph/Bulgar (LACTINEX/FLORANEX) TAB PO SCH (20:11)
[2016-06-27 20:52] VITALS: BP 158/71
[2016-06-28] VITALS: BP 129/62
[2016-06-28] MEDS: NS IV 1000 ML 1,000 ML IV SCH ×3 (03:39→17:00)
[2016-06-28] MEDS: fentaNYL INJECTION 100 MCG/2 ML AMP IVP PRN ×3 (03:45→17:01)
[2016-06-28] MEDS: PIPERACILLIN/TAZOBACTAM 4.5 GM/NS100 ML IVPB IV SCH ×4 (03:46→12:41)
[2016-06-28 04:38] VITALS: BP 143/67
[2016-06-28] MEDS: LACTOBACILLUS Acidoph/Bulgar (LACTINEX/FLORANEX) TAB PO SCH ×3 (05:52→17:00)
[2016-06-28 06:02] LABS: BASOPHILS # (AUTO) 0.1 10^3/uL (0.0-0.1); BASOPHILS % (AUTO) 0 % (0-10); EOSINOPHILS % (AUTO) 0 % (0-10); LYMPHOCYTES # (AUTO) 2.8 X 10^3 (1.0-4.0); LYMPHOCYTES % (AUTO) 4 % (12-44); MEAN CORPUSCULAR HEMOGLOBIN 31 PG (25-34); MEAN CORPUSCULAR HGB CONC 33 G/DL (32-36); MEAN CORPUSCULAR VOLUME 94 FL (80-99); MEAN PLATELET VOLUME 11.3 FL (7.4-10.4); MONOCYTES # (AUTO) 21.6 X 10^3 (0.0-1.0); MONOCYTES % (AUTO) 34 % (0-12); NEUTROPHILS # (AUTO) 39.7 X 10^3 (1.8-7.8); NEUTROPHILS % (AUTO) 62 % (42-75); PLATELET COUNT 598 10^3/uL (130-400); RED CELL DISTRIBUTION WIDTH 16.4 % (10.0-14.5)
[2016-06-28 06:13] LABS: WHITE BLOOD COUNT 64.2 10^3/uL (4.3-11.0)
[2016-06-28 06:31] LABS: ALANINE AMINOTRANSFERASE 12 U/L (0-55); ALBUMIN 3.1 G/DL (3.2-4.5); ANION GAP 15 MMOL/L (5-14); ASPARTATE AMINO TRANSFERASE 24 U/L (5-34); BILIRUBIN,TOTAL 1.1 MG/DL (0.1-1.0); BLOOD UREA NITROGEN 12 MG/DL (7-18); BUN/CREATININE RATIO 17; CALCIUM 7.9 MG/DL (8.5-10.1); CARBON DIOXIDE 18 MMOL/L (21-32); CHLORIDE 108 MMOL/L (98-107); GFR ESTIMATED > 60; GLUCOSE 116 MG/DL (70-105); POTASSIUM 4.1 MMOL/L (3.6-5.0); SODIUM 141 MMOL/L (135-145); TOTAL PROTEIN 5.8 G/DL (6.4-8.2)
[2016-06-28 07:22] LABS: LYMPHOCYTES % (MANUAL) 2 %; NEUTROPHILS % (MANUAL) 70 %; PATH WILL NEED TO REVIEW SMEAR PATH TO REVIEW
--- NOTE | 2016-06-28 07:32 | Progress Note (SOAP) ---
Subjective Subjective/Events-last exam good response to magnesium citrate. Reports pain over the lower back and occasional,, mild abdominal pain. White cell count is increased profoundly to 64,000. Peripheral smear pending. Review of Systems General: Malaise HEENT: No Head Aches, No Eye Pain, No Ear Pain, No Dysphasia, No Sinus Congestion, No Post Nasal Drip, No Sore Throat Pulmonary: Cough Gastrointestinal: Abdominal Pain Genitourinary: No Dysuria, No Frequency, No Incontinence, No Hematuria, No Retention Musculoskeletal: back pain Neurological: No: Change in speech, Confusion, Incoordination, Numbness, Other , Seizures, Weakness Objective Exam Vital Signs Date Time Temp Pulse Resp B/P (MAP) Pulse Ox O2 Delivery O2 Flow Rate FiO2 06/28/16 04:38 99.9 103 20 143/67 93 Room Air 06/28/16 00:00 100.1 104 16 129/62 93 Room Air 06/27/16 20:52 100.0 104 16 158/71 94 Room Air 06/27/16 20:00 94 06/27/16 16:42 99.8 103 18 170/73 94 Room Air 06/27/16 12:00 97.9 104 18 149/72 98 Room Air 06/27/16 08:00 98.8 94 16 164/67 95 Room Air I & O 06/28/16 07:00 Intake Total 1490 ml Balance 1490 ml Capillary Refill : Less Than 3 Seconds General Appearance: No Apparent Distress HEENT: Normal ENT Inspection Neck: Normal Inspection Respiratory: Decreased Breath Sounds Cardiovascular: Regular Rate, Rhythm Gastrointestinal: non tender, soft Extremity: Normal Inspection Neurologic/Psychiatric: Alert, Oriented x3 Skin: Warm/Dry Lymphatic: No Adenopathy Results Lab Laboratory Tests 06/27/16 11:49: White Blood Count 39.2*H, Red Blood Count 4.09L, Hemoglobin 12.4, Hematocrit 38 , Mean Corpuscular Volume 93, Mean Corpuscular Hemoglobin 30, Mean Corpuscular Hemoglobin Concent 33, Red Cell Distribution Width 15.9H, Platelet Count 664H, Mean Platelet Volume 11.3H 06/27/16 15:15: Lactic Acid Level 1.31 06/28/16 05:20: White Blood Count 64.2*H, Red Blood Count 3.60L, Hemoglobin 11.0L, Hematocrit 34L, Mean Corpuscular Volume 94, Mean Corpuscular Hemoglobin 31, Mean Corpuscular Hemoglobin Concent 33, Red Cell Distribution Width 16.4H, Platelet Count 598H, Mean Platelet Volume 11.3H, Neutrophils (%) (Auto) 62, Lymphocytes ( %) (Auto) 4L, Monocytes (%) (Auto) 34H, Eosinophils (%) (Auto) 0, Basophils (%) (Auto) 0, Neutrophils # (Auto) 39.7H, Lymphocytes # (Auto) 2.8, Monocytes # ( Auto) 21.6H, Eosinophils # (Auto) 0.0, Basophils # (Auto) 0.1, Neutrophils % ( Manual) 70, Lymphocytes % (Manual) 2, Monocytes % (Manual) 28, Blood Morphology Comment NORMAL, Absolute Reticulocyte Count 49, Percent Reticulocyte Count 1.40 , Sodium Level 141, Potassium Level 4.1, Chloride Level 108H, Carbon Dioxide Level 18L, Anion Gap 15H, Blood Urea Nitrogen 12, Creatinine 0.70, Estimat Glomerular Filtration Rate > 60, BUN/Creatinine Ratio 17, Glucose Level 116H, Calcium Level 7.9L, Total Bilirubin 1.1H, Aspartate Amino Transf (AST/SGOT) 24, Alanine Aminotransferase (ALT/SGPT) 12, Alkaline Phosphatase 117, Total Protein 5.8L, Albumin 3.1L Assessment/Plan Assessment/Plan Assess & Plan/Chief Complaint Acute compression fracture of lumbar vertebra. Left lower lobe consolidation. Long-standing calcified gallbladder. No evidence of acute cholecystitis. New- onset constipation, possibly secondary to compression fracture. Reasonable to treat symptomatically with magnesium citrate and address the compression fracture aspirin recommendation by the spine surgeon. At this point, porcelain gallbladder be observed and her white cell count followed. Currently she is on appropriate antibiotics for pneumonia protocol. 06/28/16:increasing leukocytosis. Compression fracture of lumbar vertebra. Porcelain gallbladder. Constipation resolved.peripheral blood smear pending. No radiologic or clinical evidence of acute cholecystitis. We'll continue to evaluate. Final Diagnosis compression fracture of lumbar vertebra. Left lower lobe pneumonia. Porcelain gallbladder Clinical Quality Measures DVT/VTE Risk/Contraindication: VTE Present on Admission: No Risk Factor Score Per Nursin RFS Level Per Nursing on Admit: 2=Moderate JANN GASPAR MD Jun 28, 2016 7:32 am
[2016-06-28 08:00] VITALS: BP 134/63
--- NOTE | 2016-06-28 08:37 | Progress Note (SOAP) ---
Subjective Subjective/Events-last exam SEE DISCHARGE SUMMARY Review of Systems General: Fatigue Objective Exam Vital Signs Date Time Temp Pulse Resp B/P (MAP) Pulse Ox O2 Delivery O2 Flow Rate FiO2 06/28/16 04:38 99.9 103 20 143/67 93 Room Air 06/28/16 00:00 100.1 104 16 129/62 93 Room Air 06/27/16 20:52 100.0 104 16 158/71 94 Room Air 06/27/16 20:00 94 06/27/16 16:42 99.8 103 18 170/73 94 Room Air 06/27/16 12:00 97.9 104 18 149/72 98 Room Air I & O 06/28/16 07:00 Intake Total 1490 ml Balance 1490 ml Capillary Refill : Less Than 3 Seconds General Appearance: No Apparent Distress Results Lab Laboratory Tests 06/27/16 11:49: White Blood Count 39.2*H, Red Blood Count 4.09L, Hemoglobin 12.4, Hematocrit 38 , Mean Corpuscular Volume 93, Mean Corpuscular Hemoglobin 30, Mean Corpuscular Hemoglobin Concent 33, Red Cell Distribution Width 15.9H, Platelet Count 664H, Mean Platelet Volume 11.3H 06/27/16 15:15: Lactic Acid Level 1.31 06/28/16 05:20: White Blood Count 64.2*H, Red Blood Count 3.60L, Hemoglobin 11.0L, Hematocrit 34L, Mean Corpuscular Volume 94, Mean Corpuscular Hemoglobin 31, Mean Corpuscular Hemoglobin Concent 33, Red Cell Distribution Width 16.4H, Platelet Count 598H, Mean Platelet Volume 11.3H, Neutrophils (%) (Auto) 62, Lymphocytes ( %) (Auto) 4L, Monocytes (%) (Auto) 34H, Eosinophils (%) (Auto) 0, Basophils (%) (Auto) 0, Neutrophils # (Auto) 39.7H, Lymphocytes # (Auto) 2.8, Monocytes # ( Auto) 21.6H, Eosinophils # (Auto) 0.0, Basophils # (Auto) 0.1, Neutrophils % ( Manual) 70, Lymphocytes % (Manual) 2, Monocytes % (Manual) 28, Blood Morphology Comment NORMAL, Absolute Reticulocyte Count 49, Percent Reticulocyte Count 1.40 , Sodium Level 141, Potassium Level 4.1, Chloride Level 108H, Carbon Dioxide Level 18L, Anion Gap 15H, Blood Urea Nitrogen 12, Creatinine 0.70, Estimat Glomerular Filtration Rate > 60, BUN/Creatinine Ratio 17, Glucose Level 116H, Calcium Level 7.9L, Total Bilirubin 1.1H, Aspartate Amino Transf (AST/SGOT) 24, Alanine Aminotransferase (ALT/SGPT) 12, Alkaline Phosphatase 117, Total Protein 5.8L, Albumin 3.1L Assessment/Plan Assessment/Plan Assess & Plan/Chief Complaint [id number] - Mk Lugo - [phone] SEE DISCHARGE SUMMARY Clinical Quality Measures DVT/VTE Risk/Contraindication: VTE Present on Admission: No Risk Factor Score Per Nursin RFS Level Per Nursing on Admit: 2=Moderate MK MONTELONGO MD Jun 28, 2016 08:37
--- NOTE | 2016-06-28 09:46 | Discharge Summary ---
Diagnosis/Chief Complaint Date of Admission Jun 27, 2016 at 05:31 Date of Discharge JUNE 28, 2016 Admission Diagnosis Admission Diagnosis PORCELAIN GALLBLADDER ABDOMINAL PAIN BACK PAIN WITH L2 COMPRESSION FRACTURE CONSTIPATION - NO BOWEL MOVEMENT X 10 DAYS LEUKOCYTOSIS WEAKNESS Discharge Diagnosis ACUTE LEUKEMIA PORCELAIN GALLBLADDER ABDOMINAL PAIN BACK PAIN WITH L2 AND L3 COMPRESSION FRACTURE CONSTIPATION WEAKNESS Reason Hospital Visit PT REPORTS THAT SHE WAS HAVING PAIN IN HER ABDOMEN AND BACK. SHE REPORTS THAT HER PAIN IS QUITE INTENSE IN HER BACK. SHE STATES THAT THE PAIN IN HER ABDOMEN HAS IMPROVED A LITTLE SINCE ADMISSION. Discharge Summary Discharge Physical Examination Allergies: Coded Allergies: NKANo Known Allergies (Verified Allergy, Unknown, 12/24/07) Vitals & I&Os Vital Signs Date Time Temp Pulse Resp B/P (MAP) Pulse Ox O2 Delivery O2 Flow Rate FiO2 06/28/16 17:24 90 20 161/70 95 06/28/16 15:40 97.9 Room Air General Appearance: Alert, Oriented X3, Cooperative, No Acute Distress (UNLESS MOVING - THEN PT HAS PAIN IN HER MID TO LOW BACK WITH MOVEMENT) HEENT: Atraumatic, PERRLA, Mucous Memb Moist/[place] Respiratory: Clear to Auscultation, Normal Air Movement Cardiovascular: Regular Rate Abdominal: Normal Bowel Sounds, Soft, No Tenderness Extremities: No Clubbing, No Cyanosis, No Edema Skin: No Rashes, No Breakdown Neuro: Normal Speech, Strength at 5/5 X4 Ext, Cranial Nerves 3-12 NL Psych/Mental Status: Mental Status NL, Mood NL Hospital Course ACUTE LEUKEMIA PORCELAIN GALLBLADDER ABDOMINAL PAIN BACK PAIN WITH L2 COMPRESSION FRACTURE CONSTIPATION - NO BOWEL MOVEMENT X 10 DAYS LEUKOCYTOSIS WEAKNESS PORCELAIN GALLBLADDER - NO SURGERY INDICATED AT THIS TIME. CONSTIPATION WITH ABDOMINAL PAIN - RX FOR ENEMA, SENNA, MIRALAX, GOOD OUTPUT OVERNIGHT LAST NIGHT. BACK PAIN - L2 AND L3 COMPRESSION FRACTURE FOUND ON MRI - NO EVIDENCE OF MASS/ OCCULT MALIGNANCY ON MRI PER RADIOLOGIST REPORT -APPEARS TO BE OSTEOPOROTIC FRACTURE. WEAKNESS - WILL NEED THERAPY. LEUKOCYTOSIS - SUSPECT ACUTE MONOCYTIC LEUKEMIA- SIGNIFICANT ELEVATION FROM YESTERDAY - INITIAL WBC'S WERE 34, THIS MORNING THEY WERE 64.2 - BLOOD CULTURE REPORT STILL PENDING - REST OF LABS STILL PENDING - PATHOLOGIST NOT AVAILABLE THIS MORNING, DISCUSSED WITH DR. RUBY - HE LOOKED AT THE PERIPHERAL SMEAR - HE NOTED MONOCYTES THAT WERE LARGELY IMMATURE, AND HE IS QUESTIONING ACUTE MONOCYTIC LEUKEMIA. WE DO NOT HAVE THE FACILITIES TO TREAT AN ACUTE LEUKEMIC PROCESS AT THIS HOSPITAL AND WE ARE PLANNING TO TRANSFER THE PT TO A [facility], PREF[facility]. I HAVE CALLED AND DISCUSSED THE CASE WITH HER FAMILY, THEY ARE IN AGREEMENT WITH TRANSFER OF THE PATIENT TO [facility] - WE ARE CURRENTLY WAITING ON THE TRANSFER TEAM TO CALL BACK AFTER UTILIZATION REVIEW. TRANSFER TEAM WAS ABLE TO GET THE FAMILY MEDICINE SERVICE TO ACCEPT PATIENT FOR INPATIENT TRANSFER WITH ONCOLOGY CONSULTING ON THE PATIENT. Pending Labs Discharge Condition at discharge STABLE Instructions to patient/family Please see electonic discharge instructions given to patient. Discharge Medications Reviewed and agree with Discharge Medication list on patient's Discharge Instruction sheet Clinical Quality Measures DVT/VTE Risk/Contraindication: VTE Present on Admission: No Risk Factor Score Per Nursin RFS Level Per Nursing on Admit: 2=Moderate MK MONTELONGO MD Jun 28, 2016 09:46
[2016-06-28] MEDS: ENOXAPARIN 30 MG/0.3 ML (LOVENOX) SYR SC SCH (09:51)
--- NOTE | 2016-06-28 10:00 | Discharge Inst-Simple/Standard ---
Discharge Inst-Standard Patient Instructions/Follow Up Plan of Care/Instructions/FU: PT TO BE TRANSFERRED TO [facility] TODAY - [facility] - DR. ALVAREZ IS THE ATTENDING Activity as Tolerated: MK Escobedo MD Jun 28, 2016 10:00
[2016-06-28 11:32] LABS: BILIRUBIN,URINE NEGATIVE (NEGATIVE); KETONES,URINE 4+ (NEGATIVE); LEUKOCYTE ESTERASE ,URINE 1+ (NEGATIVE); NITRITE,URINE NEGATIVE (NEGATIVE); PH,URINE 5 (5-9); PROTEIN,URINE 3+ (NEGATIVE); UROBILINOGEN,URINE 1 MG/DL (NORMAL)
[2016-06-28 11:48] LABS: GRANULAR CASTS,URINE RARE /LPF
[2016-06-28 12:00] VITALS: BP 155/67
[2016-06-28 15:40] VITALS: BP 161/70
[2016-06-28 17:24] VITALS: BP 161/70
== END 2016-06-28 17:24 | disposition short-term general hospital (02) | DRG 835 ==
LOC: EDUNIT# 02:47 → ER 02:48 → 4TH 05:31
PROVIDERS: ADMIT Family Medicine; ATTEND Family Medicine
DX: C93.00 Acute monoblastic/monocytic leukemia, not having achieved remission (principal); M80.08XA Age-related osteoporosis with current pathological fracture, vertebra(e), initial encounter for fracture; K21.9 Gastro-esophageal reflux disease without esophagitis; K82.8 Other specified diseases of gallbladder; M19.90 Unspecified osteoarthritis, unspecified site; Z96.653 Presence of artificial knee joint, bilateral; K59.00 Constipation, unspecified; D72.829 Elevated white blood cell count, unspecified; R53.1 Weakness
CPT/HCPCS: 36415; 71010; 72158; 74176; 76705; 80053; 81000; 83605; 83690; 85007; 85027; 85045; 87040; 87088; 96365